=== PATIENT | female | born 1985 | race Caucasian/White ===

== ENCOUNTER → 2022-12-03 10:00 | Outpatient (BNVA) | payer MEDICAID, SELFPAY | PROVIDERS: Family Provider Family Medicine; Visit Provider Obstetrics & Gynecology | DX: Z01.419 Encounter for gynecological examination (general) (routine) without abnormal findings (principal) | CPT/HCPCS: 87624 ==

== ENCOUNTER → 2025-02-24 12:52 | Outpatient (BNVA) | payer SELFPAY | PROVIDERS: Family Provider Family Medicine; Visit Provider Nurse Practitioner Women's Health | DX: Z01.419 Encounter for gynecological examination (general) (routine) without abnormal findings (principal) | CPT/HCPCS: 82306; 84443 ==

== ENCOUNTER 2025-05-07 17:23 | Emergency (ER) | payer SELFPAY ==
--- OUTSIDE RECORDS SUMMARY | 2003-09-08 19:00 | XMS_ITS | Continuity of Care Document ---
Author Name [facility] Address [address] [place] [address] Organization [facility] Care Team Providers Care Supervisor Covering And Lining Name Role Phone [facility] Unavailable Unavailable Allergies, Adverse Reactions, Alerts Substance Category Reaction Severity Reaction type Status Date Reported Comments Source codeine Assertion Drug allergy Active OUTREACH [facility]ICS Encounters Location Location Details Encounter Type Encounter Number Reason For Visit Attending Provider ADM Date DC Date Status Source OUT OUT OUTPATIENT [id number] F/U 09/15 [facility]SULT Jesús Plunkett Cancel Outreach Clinics
[2025-05-07 17:26] VITALS: BP 143/84; PULSE 84; RESP 20; TEMP 36.8; O2SAT 97; BMI 21.9
--- NOTE | 2025-05-07 18:53 | W.ED.PSYCHS ---
HPI - Psych General: Chief Complaint: Psychiatric Symptoms Stated Complaint: 96 Time Seen by Provider: 05/07/25 17:34 Source: patient Mode of arrival: ambulatory Limitations: no limitations History of Present Illness: This patient is a 40-year-old female who presents emerged department with acute anxiety. She is requesting a 96-hour hold voluntarily to get away from everything. She is extremely tearful stating that a lot of things have been happening in her life, including a lot of marital issues where she thinks that she is going through divorce. She states that her and her have been arguing a lot, and that she will constantly accuse him of cheating despite any evidence. She is adamantly denying any suicidal ideation or homicidal ideation, and no hallucinations of any kind. No drug or alcohol use. She comments that she just needs a break from everything, and that she has been on hormone replacement medications and quit 2 days ago as she thought that these were why she was getting so emotional and angry. She takes citalopram, propranolol, and hydroxyzine for her symptoms and has been compliant with these. Has never been seen in inpatient psychiatric facility, and states that she has a counselor that she sees regularly at [facility]. complaint: feels depressed and other (anxious) Onset (ago): month(s) Duration: constant and getting worse History of same: Yes Context: new medication(s) and significant life stressor Associated symptoms: Reports depression; Deny auditory hallucinations, visual hallucinations, homicidal ideation or suicidal ideation Related Data Previous Rx's ?Medication ?Instructions ?Recorded estradiol 0.5 mg tablet 0.5 mg PO DAILY #30 tabs 02/24/25 progesterone micronized 100 mg 100 mg PO BEDTIME #30 caps 02/24/25 capsule citalopram 40 mg tablet 40 mg PO DAILY #30 tabs 03/18/25 hydroxyzine HCl 10 mg tablet 10 mg PO QID PRN anxiety #120 tabs 03/18/25 propranolol 10 mg tablet 10 mg PO BID PRN anxiety #60 tabs 03/18/25 Allergies Allergy/AdvReac Type Severity Reaction Status Date / Time codeine AdvReac Rash Verified 02/24/25 09:36 Review of Systems General: Reports: 10 or more systems reviewed and unremarkable except in HPI and below Const: Denies: fever(s), chills or fatigue Eyes: Denies: change in vision ENMT: Denies: throat pain, ear or mastoid pain or nasal discharge Card: Denies: chest pain, palpitations, swelling of feet/ankles or lightheadedness Resp: Denies: dyspnea, productive cough or wheezing GI: Denies: abdominal pain, nausea, vomiting, diarrhea or constipation : Denies: flank pain, difficulty voiding, dysuria or urinary frequency Musc: Denies: neck pain, back pain or joint pain Skin/Breast: Denies: rash Neuro: Denies: headache(s), numbness in extremities or weakness in extremities Psych: Reports: anxiety and depression; Denies: visual hallucinations, auditory hallucinations, tactile hallucinations, suicidal ideation or homicidal ideation PFSH ED PFSH: Medical History Psychiatric care No pertinent past medical history Denies diabetes, asthma, hypertension, seizures, DVT/PE PCP: Dr. Meyer Surgical History S/P foot surgery Left foot surgery for club foot S/P tubal ligation Laparoscopic bilateral total salpingectomy for sterilization performed by Dr. Patel at [facility] on 06/11/2019. Pathology showed complete transection with normal morphology . No other pathology noted at time of laparoscopy and no adhesions seen. Family History Grandmother Diabetes maternal and paternal Hypertension maternal and paternal Stroke maternal Heart disease maternal and paternal Grandfather Diabetes maternal and paternal Hypertension maternal and paternal Father Hypertension Daughter Hypertension Denies family history of Colon cancer Ovarian cancer Breast cancer Uterine cancer Social History Smoking and tobacco/nicotine status: never used tobacco/nicotine Physical Exam Const: COMMON NORMALS: no acute distress, patient oriented x3 and no limitations GENERAL APPEARANCE: cooperative and well developed ORIENTATION/CONSCIOUSNESS: Yes awake, Yes oriented to person, Yes oriented to place and Yes oriented to time OTHER: tearful, anxious HENMT: COMMON NORMALS: normocephalic, atraumatic and hearing grossly normal bilaterally HEAD & SCALP: normocephalic and atraumatic Eye: COMMON NORMALS: Equal, round and reactive pupils present, EOMs intact bilaterally and conjunctivae normal CONJUNCTIVA: Yes conjunctivae normal PUPIL: Yes Equal, round and reactive pupils present Neck/C-Spine: COMMON NORMALS: full ROM, supple and no JVD Resp: COMMON NORMALS: normal respiratory effort, No retractions, No use of accessory muscles and clear to auscultation bilaterally AUSCULTATION: clear to auscultation bilaterally Cardio: COMMON NORMALS: no JVD, regular rate, regular rhythm, No clicks present (Cardio), No murmurs present (Cardio) and No rub (Cardio) RATE: regular rate RHYTHM: regular rhythm GI: COMMON NORMALS: Normal to inspection, nondistended, normoactive bowel sounds present, Soft to palpation and non-tender AUSCULTATION: Yes normoactive bowel sounds PALPATION: Yes Soft to palpation RECTAL EXAM: deferred Extremity: COMMON NORMALS: normal to inspection, full ROM and capillary refill normal Neuro: COMMON NORMALS: patient oriented x3, moves all extremities, no focal motor deficits and no sensory deficits noted SENSORIUM/ORIENTATION: Yes oriented to person, Yes oriented to place and Yes oriented to time Psych: COMMON NORMALS: mental status grossly normal and Normal thought process present MOOD & AFFECT: Yes depressed mood and Yes tearful THOUGHT PROCESS: Normal thought process present THOUGHT CONTENT: No Suicidality present, No Homicidality present and No Hallucination(s) present Skin: COMMON NORMALS: no rashes or lesions noted GENERAL SKIN EXAM: no rashes or lesions noted Course Vital Signs: Vital signs: Vital Signs Temperature 98.3 F 05/07/25 17:26 Pulse Rate 84 05/07/25 17:26 Respiratory Rate 20 H 05/07/25 17:26 Blood Pressure 143/84 05/07/25 17:26 Pulse Oximetry 97 05/07/25 17:26 Oxygen Delivery Me thod Room Air 05/07/25 17:26 MDM - Psych Medical Decision Making Patient presenting with her acute anxiety, history of major depressive disorder as well. Recently stopped taking progesterone and estradiol due to her worsening emotional state and anger issues, she states. She arrives stating she wanted a 96-hour hold and placed in the neuropsychiatric unit for a break. However she has not been suicidal, homicidal, hallucinatory, or showing signs or symptoms of failure to thrive at home or other major psychiatric or neurologic dysfunction. She does not meet criteria for 96-hour hold nor psychiatric admission, and she does note quite a bit of relief after Ativan here. She already takes propranolol and hydroxyzine as rescue medications, and citalopram regularly which she states she has been compliant with. She already has outpatient arrangement set up, sees counseling at [facility]. Do not feel that she is a threat to herself or threat to anyone else at home, and she is agreeing with discharge home at this time. She will be given a couple of Ativan for home and encouraged to return with any thoughts of suicidal ideation, homicidal ideation, hallucinations, or other major psychiatric concerns. No radiology studies performed this visit Discharge Plan Discharge Patient Disposition: Home Clinical Impression: Acute anxiety, Major depressive disorder, recurrent, moderate Condition: Stable Prescriptions: No Action estradiol 0.5 mg tablet 0.5 mg PO DAILY Qty: 30 2RF Rx Instructions: take once daily progesterone micronized 100 mg capsule 100 mg PO BEDTIME Qty: 30 2RF Rx Instructions: take once daily citalopram 40 mg tablet 40 mg PO DAILY Qty: 30 2RF hydroxyzine HCl 10 mg tablet 10 mg PO QID PRN (Reason: anxiety) Qty: 120 2RF propranolol 10 mg tablet 10 mg PO BID PRN (Reason: anxiety) Qty: 60 2RF Discharge Orders: Discharge ED (Routine); Ordered 05/07/25 Ordered By: Rocky Ingram Referrals: Miguelangel Meyer MD [Family Provider, [facility]] Patient Instructions: Patient Portal & Kiley Instructions Activity Restrictions/Additional Instructions: Acute Anxiety Discharge Instructions Diagnosis: Acute anxiety and exacerbation of major depressive disorder. Treatment: Symptomatic relief achieved with lorazepam (Ativan); a limited supply provided for short-term use as needed. --- Medication Instructions: - Lorazepam (Ativan) is indicated for short-term relief of anxiety symptoms, including those associated with depressive disorders. - Use the medication only as prescribed. Do not exceed the recommended dose or frequency. The usual initial dose for anxiety is 2?3 mg/day in divided doses, but dosing should be individualized based on response. - Lorazepam is intended for short-term use only. Prolonged use increases the risk of dependence and withdrawal. - Do not abruptly discontinue lorazepam; if discontinuation is needed, a gradual taper is recommended to minimize withdrawal risk. - Avoid alcohol, opioids, and other sedating medications while taking lorazepam due to risk of profound sedation and respiratory depression. - Do not drive or operate heavy machinery until the effects of lorazepam are known. Adverse Effects and Precautions: - Common side effects include sedation, fatigue, dizziness, and impaired coordination. - Paradoxical reactions (e.g., increased anxiety, agitation, hostility) may occur; discontinue use and seek medical attention if these develop. - Lorazepam may unmask or worsen depression; monitor for changes in mood or emergence of suicidal ideation. - Physical dependence and withdrawal can occur, especially with prolonged use or higher doses. Symptoms of withdrawal may include anxiety, insomnia, tremor, agitation, and, in severe cases, seizures or psychosis. - Notify your healthcare provider if you are , planning , or . Follow-Up: - Outpatient psychiatric follow-up is already arranged. Adherence to follow-up is essential for ongoing management of anxiety and depressive symptoms. - Periodic reassessment of medication necessity and mental health status is recommended. Strict Return Precautions: - Return to the emergency department or contact your provider immediately for any of the following: - New or worsening suicidal thoughts or plans - Thoughts of harming others - Hallucinations or new-onset psychosis - Severe confusion, disorientation, or agitation - Signs of overdose: excessive sedation, difficulty waking, slowed breathing, or unresponsiveness - Severe withdrawal symptoms: seizures, severe tremor, or delirium - Allergic reactions: rash, swelling, difficulty breathing Additional Instructions: - Dispose of unused lorazepam safely to prevent misuse or accidental ingestion. - Do not share medication with others. - If substance use disorder is suspected, early evaluation and treatment are recommended. Summary: Short-term lorazepam is provided for acute anxiety relief, with strict instructions for use, monitoring, and follow-up. The patient does not meet criteria for involuntary psychiatric hold and is not currently suicidal, homicidal, or psychotic. Ongoing outpatient management is essential. Return precautions are emphasized to ensure safety. Print Language: Hungarian Coding Level of Care Code ED Lens Cleaner for Amber Looney
== END 2025-05-07 19:28 | disposition home or self-care (01) ==
PROVIDERS: Emergency Provider Physician Assistant; Family Provider Family Medicine
DX: F41.8 Other specified anxiety disorders (principal); F33.9 Major depressive disorder, recurrent, unspecified
CPT/HCPCS: 99283; J9999